=== PATIENT | female | born 1985 | race Hispanic/Latino ===

== ENCOUNTER 2017-10-10 22:50 | Emergency (ER) | payer SELFPAY ==
[2017-10-10 23:56] LABS: BASOPHILS % (AUTO) 1.3 % (0.0-5.0); EOSINOPHILS % (AUTO) 3.6 % (0.0-8.0); HEMATOCRIT 38.7 % (36-48); LYMPHOCYTES % (AUTO) 35.9 % (21.0-51.0); MEAN CORPUSCULAR HEMOGLOBIN 26.6 pg (27.0-33.0); MEAN CORPUSCULAR HGB CONC 33.5 g/dL (32.0-36.0); MEAN CORPUSCULAR VOLUME 79.4 fL (79-99); MONOCYTES % (AUTO) 6.5 % (3.0-13.0); NEUTROPHILS % (AUTO) 52.7 % (40.0-77.0); PLATELET COUNT (AUTO) 439 K/uL (130-400); RED BLOOD CELL COUNT(AUTO) 4.87 MIL/uL (4.00-5.50); RED CELL DISTRIBUTION WIDTH 14.8 % (11.0-15.5); WHITE BLOOD COUNT (AUTO) 8.9 K/uL (4.8-10.8)
[2017-10-11 00:08] LABS: CREATININE 0.5 mg/dL (0.5-1.5); POTASSIUM 4.2 mmol/L (3.5-5.1)
[2017-10-11 00:12] LABS: ALBUMIN 3.3 g/dL (3.5-5.0); APPEARANCE,URINE Clear (CLEAR); BILIRUBIN,TOTAL 0.2 mg/dL (0.2-1.0); BILIRUBIN,URINE Negative (NEGATIVE); COLOR,URINE Yellow (YELLOW); GLUCOSE, URINE (UA) Negative (NEGATIVE); KETONES,URINE Negative (NEGATIVE); LEUKOCYTE ESTERASE ,URINE Small (NEGATIVE); NITRATE,URINE Negative (NEGATIVE); OCCULT BLOOD,URINE Negative (NEGATIVE); PROTEIN,URINE Negative (NEGATIVE); TOTAL PROTEIN, SERUM 7.9 g/dL (6.0-8.3)
[2017-10-11 00:17] LABS: HCG,QUAL RESULT NEGATIVE (NEGATIVE)
[2017-10-11] MEDS ORDERED: DICYCLOMINE HCL 10 MG/ML 2ML AMP IM ONE (00:20)
[2017-10-11] MEDS ORDERED: ACETAMINOPHEN EXTRA STRENGTH 500 MG TABLET ONE (00:20)
[2017-10-11 00:21] LABS: BACTERIA,URINE Rare /HPF (None Seen); RBC,URINE 0-1 /HPF (0-1); SQUAMOUS EPITHELIAL CELL,UR Moderate /HPF (0-2)
[2017-10-11] MEDS ORDERED: FAMOTIDINE 20MG TAB 20 MG TAB ONE (00:21)
[2017-10-11 00:35] LABS: AMPHET/METH SCREEN,URINE NEGATIVE (NEGATIVE); BARBITURATE SCREEN, URINE NEGATIVE (NEGATIVE); BENZODIAZEPINES SCREEN,URINE NEGATIVE (NEGATIVE); CANNABINOID SCREEN,URINE NEGATIVE (NEGATIVE); COCAINE SCREEN,URINE NEGATIVE (NEGATIVE); OPIATE SCREEN,URINE NEGATIVE (NEGATIVE); PHENCYCLIDINE SCREEN,URINE NEGATIVE (NEGATIVE)
[2017-10-11] MEDS ORDERED: LIDOCAINE 5% TOPICAL PATCH TP ONE (02:48)
== END 2017-10-11 01:16 | disposition home or self-care (01) ==
LOC: EDH 22:50
DX: R10.13 Epigastric pain (principal); R19.7 Diarrhea, unspecified
CPT/HCPCS: 36415; 80053; 80305; 81001; 81025; 83690; 85025; 96372; 99285; J0500

== ENCOUNTER 2024-10-26 20:26 | Emergency (ER) | payer SELFPAY ==
[~2024-10-26] VITALS: Ht 147.3 cm; Wt 119.3 kg
[2024-10-26 21:09] LABS: BASOPHILS # (AUTO) 0.04 K/uL (0.00-0.20); BASOPHILS % (AUTO) 0.4 % (0.0-5.0); EOSINOPHILS # (AUTO) 0.17 K/uL (0.00-0.70); EOSINOPHILS % (AUTO) 1.8 % (0.0-8.0); HEMATOCRIT 39.8 % (36-48); IMMATURE GRANULOCYTE ABSOLUTE 0.03 K/uL (0-1); LYMPHOCYTES # (AUTO) 2.4 K/uL (1.0-4.8); LYMPHOCYTES % (AUTO) 25.4 % (21.0-51.0); MEAN CORPUSCULAR HEMOGLOBIN 26.6 pg (27.0-33.0); MEAN CORPUSCULAR HGB CONC 32.7 g/dL (32.0-36.0); MEAN CORPUSCULAR VOLUME 81.6 fL (79-99); MONOCYTES # (AUTO) 0.5 K/uL (0.1-1.0); MONOCYTES % (AUTO) 5.2 % (3.0-13.0); NEUTROPHILS # (AUTO) 6.3 K/uL (1.8-7.7); NEUTROPHILS % (AUTO) 66.9 % (40.0-77.0); PLATELET COUNT (AUTO) 427 K/uL (130-400); RED BLOOD CELL COUNT(AUTO) 4.88 MIL/uL (4.00-5.50); RED CELL DISTRIBUTION WIDTH 13.5 % (11.0-15.5); WHITE BLOOD COUNT (AUTO) 9.4 K/uL (4.8-10.8)
[2024-10-26 21:16] LABS: CREATININE 0.6 mg/dL (0.5-1.0); POTASSIUM 3.9 mmol/L (3.5-5.1)
--- NOTE | 2024-10-26 21:29 | HMCIMG ---
Exam Type: CHEST 1VW Clinical Information: CHEST PAIN Comparison: None Findings: The lungs are clear of infiltrates. The heart is normal in size. The bony and soft tissue structures of the chest are unremarkable. Impression: Clear lungs.
[2024-10-26 21:33] LABS: B-TYPE NATRIURETIC PEPTIDE < 5 pg/mL (0-100)
[2024-10-26] MEDS: 0.9%NACL 1000ML 1,000 ML IV STA (23:03)
[2024-10-26] MEDS: ASPIRIN 81MG CHEW TAB PO STA (23:03)
--- NOTE | 2024-10-27 00:06 | ERN ---
ED Note History of Present Illness Stated Complaint: C/O CP ONSET TODAY Chief Complaint: Chest Pain Time Seen by MD: 20:30 Time Seen by Midlevel: 20:33 Dictation: 39-year-old female status only medical history is asthma coming in complaining of chest pain onset while she was at work. Patient states this started today. Denies having any shortness a breath, nausea, vomiting. Denies any smoking drug use or alcohol. Allergies: Coded Allergies: No Known Allergies (Unverified Allergy, Unknown, 10/26/24) Past Medical History Past Medical History: Asthma Surgical History: Hysterectomy Review of System Dictation Constitutional: Negative for fever,chills, and weight loss Eyes: Negative for injury, pain,redness, and discharge ENT: Negative for injury,pain or swelling Cardiovascular: Positive for chest pain, no palpitations, and no edema Respiratory: Negative for shortness of breath, cough, and wheezing, Abdomen/GI: Negative for abdominal pain, nausea, vomiting, diarrhea, and constipation Back: Negative for injury and pain : Negative for injury, bleeding and discharge MS/Extremity: Negative for injury and deformity Skin: Negative for rash, and discoloration Neuro: Negative for headache, weakness, numbness, tingling, and seizure Psych: Negative for suicide ideation, homicidal ideation, and hallucinations Review of Systems: was completed Initial Vital Sign VS Vital Signs Date Time Temp Pulse Resp B/P (MAP) Pulse Ox O2 Delivery O2 Flow Rate FiO2 10/26/24 20:31 97.2 82 20 186/92 98 Room Air 10/27/24 00:00 0 21 Physical Exam Dictation General: awake, alert, NAD Head/Face: Normocephalic, atraumatic Eyes: PERRL, EOMI, vision at baseline ENT: oral cavity clear, TMs clear, no signs of infection Neck: Trachea midline, supple, no nuchal rigidity Cardiovascular: RRR, normal S1/S2, No MRGs, no JVD Respiratory: CTAB, no respiratory distress, No rales or wheezes Abdomen: Soft, non-tender, non-distended, normal bowel sounds, no guarding or rebound. Skin: Warm, dry, normal turgor, no rash MS/Extremity: Pulses equal, no cyanosis, neurovascular intact, FROM Neuro: COAx4, GCS 15, strength 5/5, CN 2-12 intact, normal cerebellar exam, normal gait, Psych: Normal behavior, mood, and affect normal Results (Laboratory/Radiology) Laboratory/Radiology Laboratory Tests Test 10/26/24 20:52 10/26/24 23:21 White Blood Count 9.4 K/uL (4.8-10.8) Red Blood Count 4.88 MIL/uL (4.00-5.50) Hemoglobin 13.0 g/dL (12.0-16.0) Hematocrit 39.8 % (36-48) Mean Corpuscular Volume 81.6 fL (79-99) Mean Corpuscular Hemoglobin 26.6 pg (27.0-33.0) L Mean Corpuscular Hemoglobin Concent 32.7 g/dL (32.0-36.0) Red Cell Distribution Width 13.5 % (11.0-15.5) Platelet Count 427 K/uL (130-400) H Mean Platelet Volume 9.9 fL (7.5-10.5) Immature Granulocyte % (Auto) 0.3 % (0-1) Neutrophils (%) (Auto) 66.9 % (40.0-77.0) Lymphocytes (%) (Auto) 25.4 % (21.0-51.0) Monocytes (%) (Auto) 5.2 % (3.0-13.0) Eosinophils (%) (Auto) 1.8 % (0.0-8.0) Basophils (%) (Auto) 0.4 % (0.0-5.0) Neutrophils # (Auto) 6.3 K/uL (1.8-7.7) Lymphocytes # (Auto) 2.4 K/uL (1.0-4.8) Monocytes # (Auto) 0.5 K/uL (0.1-1.0) Eosinophils # (Auto) 0.17 K/uL (0.00-0.70) Basophils # (Auto) 0.04 K/uL (0.00-0.20) Absolute Immature Granulocyte (auto 0.03 K/uL (0-1) Nucleated Red Blood Cells 0.0 % (0.0-0.19) Sodium Level 136 mmol/L (136-145) Potassium Level 3.9 mmol/L (3.5-5.1) Chloride Level 101 mmol/L (101-111) Carbon Dioxide Level 29 mmol/L (21-32) Blood Urea Nitrogen 13 mg/dL (7-18) Creatinine 0.6 mg/dL (0.5-1.0) Glomerular Filtration Rate Calc 117 mL/min (>90) Random Glucose 245 mg/dL (70-105) H Total Calcium 8.9 mg/dL (8.5-10.1) Total Creatine Kinase 75 U/L (21-232) Troponin I High Sensitivity < 4 ng/L (4-50) L < 4 ng/L (4-50) L B-Type Natriuretic Peptide < 5 pg/mL (0-100) Human Chorionic Gonadotropin, Quant 0 mIU/mL (0-5) Labs Reviewed?: Yes EKG Comment: EKGs done at 8:29 p.m., sinus rhythm at a rate of 84. Low voltage, precordial leads. No STEMI interpreted by ER MD ED Course ED Course Orders Procedure Category Date Status Time Vital Signs Per CPOE 10/26/24 Transmitted Routine 20:29 B-Type Natriuretic LAB 10/26/24 Complete Peptide 20:29 Chest 1vw RAD 10/26/24 Resulted 20:29 12 Lead Ekg Tracing- EKG 10/26/24 Logged Technical 20:29 Oxygen By Nc/Pulse Ox CPOE 10/26/24 Transmitted 20:29 Maintain Iv CPOE 10/26/24 Transmitted 20:29 Iv Insertion CPOE 10/26/24 Transmitted 20:29 Cardiac Monitoring CPOE 10/26/24 Transmitted 20:29 Pulse Oximetry With CPOE 10/26/24 Transmitted Vs And Prn 20:29 Cbc With Differential LAB 10/26/24 Complete 20:29 Activity: Br W/Brp CPOE 10/26/24 Transmitted With Assist 20:29 Creatine Kinase, Total LAB 10/26/24 Complete 20:29 Troponin I High LAB 10/26/24 Complete Sensitivity 20:29 Urinalysis Profile LAB 10/26/24 In Process 20:29 Basic Metabolic Panel LAB 10/26/24 Complete 20:29 Hcg,Quantitative LAB 10/26/24 Complete 20:37 0.9%Nacl 1000ml (Ns PHA 10/26/24 In Process 1000ml) 21:42 Aspirin 81mg Chew Tab PHA 10/26/24 Complete (Aspirin 81mg Chew 21:42 Troponin I High LAB 10/26/24 Complete Sensitivity 22:32 Current Medications Medications (Trade) Dose Ordered Sig/Marlon Route PRN Reason Start Time Stop Time Status Last Admin Dose Admin Aspirin (Aspirin 81mg Chew Tab) 324 mg ONCE STAT PO 10/26/24 21:42 10/26/24 21:44 DC 10/26/24 23:03 Sodium Chloride 1,000 ml @ 100 mls/hr Q10H STAT IV 10/26/24 21:42 10/27/24 07:41 10/26/24 23:03 Vital Signs Date Time Temp Pulse Resp B/P (MAP) Pulse Ox O2 Delivery O2 Flow Rate FiO2 10/27/24 00:00 80 18 136/84 98 Room Air* 0 21 10/26/24 20:31 97.2 82 20 186/92 98 Room Air HEART Score Response (Comments) Value History: Low suspicion (0) 0 EKG: Normal 0 Age: < 45yrs (0) 0 Risk Factors: 1-2 risk factors (+1) 1 Initial Troponin: Normal limit (0) 0 HEART Score Risk: Low Risk for MACE (1-3) Total 1 Medical Decision Making MDM MDM: 39-year-old female status only medical history is asthma coming in complaining of chest pain onset while she was at work. Patient states this started today. Denies having any shortness a breath, nausea, vomiting. Denies any smoking drug use or alcohol. Cardiac workup negative. Troponin x2 negative. Heart score is one, low risk. Discussed with the patient that her blood sugar was elevated that she needs to follow up outpatient with PCP as she might have to be further evaluated for diabetes and elevated blood pressure. Second blood pressure back in the ER room has improved into the 130s. Discussed also with the patient she needs to follow up regarding that. Discussed on signs and symptoms of when to return to the ER. Patient verbalized understanding, answered all questions. Differential diagnosis: ACS, RI, anxiety, costochondritis Rationale: Tests considered and ordered secondary to shared decision making include: Previous outside records reviewed: Old ER visits. Risk of complication and/or morbidity or mortality of patient management: None Medications-Per medication reconciliation Need for hospitalization: Patient does not meet criteria for hospitalization. Need for emergency major/minor surgery: No There are no social concerns with this patient. Prescription drug management Prescriptions will include symptomatic care Patient's prior external medical records from other ER visits were reviewed by me as indicated. Prior testing and results from previous visits were reviewed. Prior tests were taken into account with medical decision making and resource utilization, independent historian/historians were used to obtain complete medical history. I independently interpreted the test that were performed, results were reviewed by me and considered findings on radiology if ordered. Medical management and examination interpretation discussions were had by me with other qualified healthcare professionals as indicated for the patient's care. DX & DISP Disposition: Discharge Departure Impression: Primary Impression: Chest pain in adult Additional Impression: Hyperglycemia Condition: Stable Additional Instructions: Please follow up with PCP. Return to the hospital as needed. Referrals: SELF,REFERRAL (PCP) Time of Disposition: 00:04 I have reviewed the case, and I agree with, Diagnosis and Plan TORSTEN VARNER NP Oct 27, 2024 00:06
[2024-10-27 00:23] VITALS: BP 140/86; PULSE 80; RESP 18; TEMP 97.2; O2SAT 98
--- NOTE | 2024-10-27 06:46 | EKG ---
[facility] Test Date: 2024-10-26 Test Time: 20:29:47 Pat Name: JACKELINE KELLEY Department: ED Room: Gender: F [employer]inder: [id number] : 1985 Requested By: JOEY CHAN Order Number: [id number] Reading MD: Ant Conrad Measurements Intervals [place] Rate: 84 P: 30 OK: 180 QRS: 6 QRSD: 77 T: 23 QT: 343 QTc: 405 Interpretive Statements Sinus rhythm Low voltage, precordial leads No previous ECG available for comparison Electronically Signed On 10-28-2024 20:23:45 CDT by Ant Conrad Please click the below link to view image of tracing.
== END 2024-10-27 00:24 | disposition home or self-care (01) ==
LOC: EDH 20:26
DX: R07.89 Other chest pain (principal); R73.9 Hyperglycemia, unspecified; R10.2 Pelvic and perineal pain; J45.909 Unspecified asthma, uncomplicated; Z90.710 Acquired absence of both cervix and uterus
CPT/HCPCS: 36415; 71045; 80048; 82550; 83880; 84484; 84702; 85025; 93005; 99285; J7030